=== PATIENT | male | born 1985 | race Caucasian/White ===

== ENCOUNTER 2017-11-10 18:03 | Emergency (ER) | payer SELFPAY ==
[~2017-11-10] VITALS: Ht 180.3 cm; Wt 81.8 kg
[2017-11-10] MEDS ORDERED: SODIUM CHLORIDE 0.9% 1,000 ML IV ONE ×2 (18:15→19:15)
[2017-11-10] MEDS ORDERED: NALOXONE HCL 1 MG/ML 2 ML SYG IVP ONE (18:15)
[2017-11-10 18:23] LABS: GLUCOSE,POINT OF CARE 99 MG/DL (70-110)
[2017-11-10] MEDS ORDERED: LORazepam 2 MG/ML VIAL IVP ONE (18:30)
[2017-11-10 18:34] LABS: EOSINOPHILS % (AUTO) 0.7 % (1.0-6.0); HEMATOCRIT 49.1 % (41-53); HEMOGLOBIN 16.9 g/dL (13.5-17.5); LYMPHOCYTES # (AUTO) 1.8 K/uL (1.0-4.8); MEAN CORPUSCULAR HGB CONC 34.4 G/dL (31.0-37.0); MONOCYTES # (AUTO) 0.9 K/uL (0.1-1.0); NEUTROPHILS # (AUTO) 5.8 K/uL (1.8-7.7)
[2017-11-10 18:43] LABS: AMPHET/METH SCREEN,URINE POSITIVE (NEGATIVE); APPEARANCE,URINE CLEAR (CLEAR); BARBITURATE SCREEN, URINE NEGATIVE (NEGATIVE); BENZODIAZEPINES SCREEN,URINE NEGATIVE (NEGATIVE); CANNABINOID SCREEN,URINE POSITIVE (NEGATIVE); COCAINE SCREEN,URINE NEGATIVE (NEGATIVE); GLUCOSE, URINE (UA) NEGATIVE (NEGATIVE); KETONES,URINE 40 mg/dL (NEGATIVE); LEUKOCYTE ESTERASE ,URINE NEGATIVE (NEGATIVE); METHADONE SCREEN, URINE NEGATIVE (NEGATIVE); NITRATE,URINE NEGATIVE (NEGATIVE); OCCULT BLOOD,URINE NEGATIVE (NEGATIVE); OPIATE SCREEN,URINE NEGATIVE (NEGATIVE); PROTEIN,URINE POS 1+ (NEGATIVE)
[2017-11-10 18:44] LABS: PHENCYCLIDINE SCREEN,URINE NEGATIVE (NEGATIVE)
[2017-11-10 18:45] LABS: BILIRUBIN,URINE PRELIM. POSITIVE (NEGATIVE)
[2017-11-10 18:46] LABS: ANION GAP 18 mmol/L (8-16); BASOPHILS % (AUTO) 0.5 % (0.0-2.0); CALCIUM, TOTAL 9.9 mg/dL (8.8-10.5); CARBON DIOXIDE 21 mmol/L (22-29); CHLORIDE 100 mmol/L (98-107); CREATININE 1.25 mg/dL (0.60-1.30); GLOMERULAR FILTR. RATE CALC > 60 mL/min (>60); GLUCOSE,RANDOM 117 mg/dL (70-110); LYMPHOCYTES % (AUTO) 20.8 % (22.0-44.0); MEAN CORPUSCULAR HEMOGLOBIN 28.8 pg (26.0-34.0); MEAN CORPUSCULAR VOLUME 84 fL (80-100); MONOCYTES % (AUTO) 10.6 % (2.0-9.0); NEUTROPHILS % (AUTO) 67.4 % (40.0-70.0); PLATELET COUNT (AUTO) 333 K/uL (150-450); POTASSIUM 3.5 mmol/L (3.5-5.1); RED BLOOD CELL COUNT(AUTO) 5.86 MIL/uL (4.50-5.90); RED CELL DISTRIBUTION WIDTH 12.5 % (11.5-14.5); SODIUM SERUM 139 mmol/L (136-145); UREA NITROGEN, BLOOD 15 mg/dL (7-18)
[2017-11-10 18:54] LABS: RBC,URINE 0-2 /HPF (0-2)
[2017-11-10 18:54] LABS: AMMONIA 34 umol/L (11-32); TROPONIN I < 0.02 ng/mL (0.00-0.05)
[2017-11-10 18:55] LABS: BACTERIA,URINE Rare /HPF (None Seen); SQUAMOUS EPITHELIAL CELL,UR Rare /LPF (None Seen)
[2017-11-10 18:58] LABS: HYALINE CASTS, URINE 0-2 /LPF (None Seen); MUCUS,URINE Few LPF (None Seen)
[2017-11-10 18:58] LABS: SALICYLATE 0.3 mg/dL (2.8-20.0)
[2017-11-10 19:10] LABS: LACTIC ACID 4.5 mmol/L (0.4-2.0)
[2017-11-10 19:12] LABS: ALANINE AMINOTRANSFERASE 63 U/L (12-78); ALBUMIN 4.8 g/dL (3.4-5.0); ALKALINE PHOSPHATASE 102 U/L (46-116); ASPARTATE AMINOTRANSFERASE 46 U/L (15-37); BILIRUBIN,TOTAL 1.1 mg/dL (0.1-1.0); CKMB RELATIVE INDEX 0.8 % (0.0-4.0); CREATINE KINASE MB 5.8 ng/mL (0-5); CREATINE KINASE, TOTAL 767 U/L (39-308); THYROID STIMULATING HORMONE 2.51 uIU/mL (0.36-3.74)
[2017-11-10 19:22] LABS: ACETAMINOPHEN < 2 mcg/mL (10-30)
[2017-11-10 22:00] VITALS: BP 125/79
== END 2017-11-10 22:52 | disposition home or self-care (01) ==
LOC: EMS 18:04
DX: R41.82 Altered mental status, unspecified (principal); F15.10 Other stimulant abuse, uncomplicated; F12.10 Cannabis abuse, uncomplicated
CPT/HCPCS: 36415; 70450; 71045; 72125; 80053; 80307; 81001; 82140; 82550; 82553; 82948; 82962; 83605; 83735; 84443; 84484; 85025; 93005; 96361; 96374; 96375; 99285; G0480 ×2; G0481; J2060; J2310; J7030